=== PATIENT | male | born 1955 | race Caucasian/White ===

== ENCOUNTER → 2020-01-19 10:21 | Outpatient (CLI) | payer MEDICARE, SELFPAY ==
[2020-01-19 12:41] LABS: Coronavirus 19 IgG Antibody Negative (Negative); Coronavirus 19 IgM Antibody Negative (Negative)
== END ==
PROVIDERS: Visit Provider Ophthalmology
DX: Z01.89 Encounter for other specified special examinations (principal); H26.9 Unspecified cataract
CPT/HCPCS: 36415; 86328

== ENCOUNTER 2020-01-20 07:47 | Day surgery (SDC) | payer MEDICARE, SELFPAY ==
[2020-01-08 13:36] VITALS: BMI 27.0
[2020-01-20] VITALS (8 sets, daily range): BP systolic 125–134; BP diastolic 60–80; PULSE 54–57; RESP 18; TEMP 35.9–36.5; O2SAT 98–100
== END 2020-01-20 10:03 | disposition home or self-care (01) ==
LOC: OR 07:51
PROVIDERS: PCP Pediatrics; Visit Provider Ophthalmology
DX: H25.89 Other age-related cataract (principal); M06.9 Rheumatoid arthritis, unspecified; Z83.3 Family history of diabetes mellitus; Z82.49 Family history of ischemic heart disease and other diseases of the circulatory system; Z86.79 Personal history of other diseases of the circulatory system; I10 Essential (primary) hypertension; E78.5 Hyperlipidemia, unspecified; I73.9 Peripheral vascular disease, unspecified; Z79.82 Long term (current) use of aspirin; Z79.899 Other long term (current) drug therapy
CPT/HCPCS: 66982; V2632

== ENCOUNTER → 2020-02-02 09:14 | Outpatient (CLI) | payer MEDICARE, SELFPAY ==
[2020-02-02 13:24] LABS: Coronavirus 19 IgG Antibody Negative (Negative); Coronavirus 19 IgM Antibody Negative (Negative)
== END ==
PROVIDERS: Visit Provider Ophthalmology
DX: Z01.818 Encounter for other preprocedural examination (principal); H26.9 Unspecified cataract
CPT/HCPCS: 36415; 86328

== ENCOUNTER 2020-02-03 06:34 | Day surgery (SDC) | payer MEDICARE, SELFPAY ==
--- NOTE | 2020-01-27 12:28 | SUR.PREOP ---
left msg requesting pt have igg/igm testing on 02/01 between 8a and noon
[2020-01-29 10:33] VITALS: BMI 27.0
[2020-02-03] VITALS (7 sets, daily range): BP systolic 107–129; BP diastolic 62–69; PULSE 65–70; RESP 18–20; TEMP 36.4–36.7; O2SAT 97–100
== END 2020-02-03 08:46 | disposition home or self-care (01) ==
LOC: OR 06:36
PROVIDERS: PCP Pediatrics; Visit Provider Ophthalmology
DX: H25.813 Combined forms of age-related cataract, bilateral (principal); M06.9 Rheumatoid arthritis, unspecified; Z95.818 Presence of other cardiac implants and grafts; Z83.3 Family history of diabetes mellitus; Z82.49 Family history of ischemic heart disease and other diseases of the circulatory system; Z79.899 Other long term (current) drug therapy
CPT/HCPCS: 66984; V2632